=== PATIENT | male | born 1945 | race Caucasian/White ===

== ENCOUNTER 2018-01-09 18:01 | Observation (INO) | END 2018-01-10 11:49 | disposition home or self-care (01) | DX: R94.31 Abnormal electrocardiogram [ECG] [EKG] (principal); M62.82 Rhabdomyolysis; I10 Essential (primary) hypertension; I45.10 Unspecified right bundle-branch block; R00.1 Bradycardia, unspecified; E78.5 Hyperlipidemia, unspecified; N40.0 Benign prostatic hyperplasia without lower urinary tract symptoms; M54.9 Dorsalgia, unspecified; G89.29 Other chronic pain; Z79.899 Other long term (current) drug therapy; Z79.82 Long term (current) use of aspirin | CPT/HCPCS: 71046; 80048; 80053; 82550; 82552; 84484; 85025; 93005; 96360; 96361; 99285; G0378; J7030 ==